=== PATIENT | female | born 1940 | race Caucasian/White ===

== ENCOUNTER → 2020-01-18 | Outpatient (CLI) | payer MEDICARE ==
[2020-01-18 14:24] LABS: INR 1.2 (<1.2); Partial Thromboplastin Time 28.9 sec (22.0-30.0); Prothrombin Time 11.8 sec (9.0-12.0)
[2020-01-18 14:30] LABS: Albumin 4.3 g/dL (3.5-5.0); Calcium 9.7 mg/dL (8.4-10.2); Potassium 4.2 mmol/L (3.5-5.1); Total Bilirubin 0.7 mg/dL (0.2-1.3); Total Protein 6.7 g/dL (6.3-8.2)
[2020-01-18 14:39] LABS: HCT 43.9 % (34.0-46.0); HGB 14.5 gm/dL (11.4-16.0); MCH 31.5 pg (25.0-35.0); MCHC 32.9 g/dL (31.0-37.0); MCV 95.8 fL (80.0-100.0); Mean Platelet Volume 8.1; Platelet Count 171 k/uL (150-450); RBC 4.58 m/uL (3.80-5.40); RDW 14.1 % (11.5-15.5); WBC 8.3 k/uL (3.8-10.6)
[2020-01-18 14:40] LABS: Appearance,Urine Clear (Clear); Bilirubin,Urine Negative (Negative); Blood,Urine Negative (Negative); Color,Urine Light Yellow; Glucose,Urine (UA) Negative (Negative); Ketones,Urine Negative (Negative); Leukocyte Esterase,Urine Small (Negative); Nitrite,Urine Negative (Negative); PH, Urine 5.5 (5.0-8.0); Protein,Urine Negative (Negative); RBC,Urine <1 /hpf (0-5); Specific Gravity,Urine 1.019 (1.001-1.035); Squamous Epithelial Cell,Urine <1 /hpf (0-4); Urobilinogen,Urine <2.0 mg/dL (<2.0); WBC,Urine 7 /hpf (0-5)
== END | disposition home or self-care (01) ==
LOC: LABPAT 13:36
PROVIDERS: ATTEND Orthopaedic Surgery
DX: Z01.812 Encounter for preprocedural laboratory examination (principal)
CPT/HCPCS: 80053; 81001; 85027; 85610; 85730; 87070

== ENCOUNTER 2020-01-29 12:56 | Day surgery (SDC) | payer MEDICARE ==
[2020-01-24 10:15] VITALS: BMI 36.8
[~2020-01-29 12:56] MED LIST: ACETAMINOPHEN TAB 500 MG TAB PO ONE; DEXAMETHASONE SOD PHOSPHATE 10 MG/ML 1 ML VIAL IV ONE; GABAPENTIN 300 MG CAP PO ONE; HYDROmorphone 0.5 MG/0.5 ML SYRINGE IVP PRN; MELOXICAM 7.5 MG TAB PO ONE; MIDAZOLAM 2 MG/2 ML VIAL IV PRN; ONDANSETRON 4 MG/2 ML VIAL IVP ONE; TRANEXAMIC ACID 1,000 MG in SODIUM CHLORIDE 0.9% 100 ML IVPB ONE
[2020-01-29] MEDS: LACTATED RINGERS 1,000 ML IV SCH ×6 (13:29→23:46)
[2020-01-29 13:37] LABS: Glucose,Whole Blood 96 mg/dL (75-99)
[2020-01-29] MEDS ORDERED: PROPOFOL 10 MG/ML 20 ML VIAL IV ONE (15:26)
[2020-01-29] MEDS ORDERED: LACTATED RINGERS 1,000 ML BAG IV ONE (15:26)
[2020-01-29] MEDS ORDERED: SODIUM CHLORIDE 0.9% 100 ML BAG ONE (15:26)
[2020-01-29] MEDS ORDERED: HEPARIN SODIUM,PORCINE 10,000 UNIT/ML 1 ML VIAL ONE (15:26)
[2020-01-29] MEDS ORDERED: TRANEXAMIC ACID 1,000 MG/10 ML VIAL ONE (15:26)
[2020-01-29] MEDS ORDERED: ePHEDrine SULFATE/0.9% NACL/PF 50 MG/5 ML SYRINGE IV ONE (15:26)
[2020-01-29] MEDS ORDERED: MIDAZOLAM 2 MG/2 ML VIAL ONE (15:26)
[2020-01-29] MEDS ORDERED: fentaNYL (PF) 50 MCG/ML 2 ML AMP ONE (15:26)
[2020-01-29] MEDS: ROPIVACAINE 246.25 MG, EPINEPHrine 0.5 MG, KETOROLAC 30 MG, cloNIDine HCL/PF 80 MCG, WA... MISCELLANE ONE ×10 (16:05→16:45)
[2020-01-29] MEDS ORDERED: ceFAZolin 3,000 MG in SODIUM CHLORIDE 0.9% IRRIGATIO 3,000 ML IRRIGATION ONE (16:06)
--- NOTE | 2020-01-29 16:50 | P.OP ---
Date of Procedure: 01/29/20 Preoperative Diagnosis: Severe osteoarthritis right hip Postoperative Diagnosis: Severe osteoarthritis right hip Procedure(s) Performed: Right total hip arthroplasty with a direct anterior approach Implants: Huynh and nephew Polarstem size 6 standard Huynh & Nephew R3, 3 hole acetabular shell, 54 mm Huynh & Nephew reflection 6.5 mm cancellus screw, 20 mm 2 Huynh [employer] Nephew R3, XLPE 20 acetabular liner Huynh & Nephew Oxinium femoral head 36 m, +8 All components were press-fit. The articulation is Oxinium on polyethylene. Anesthesia: spinal Surgeon: Clem Cantrell Steam Hoist Operator #1: Daina Roberts Estimated Blood Loss (ml): 200 (70 mL returned with Cell Saver) Pathology: other (Femoral head) Condition: stable Disposition: PACU Indications for Procedure: After failure of conservative treatment we discussed the surgical and nonsurgical treatment options at length. Patient wishes to proceed with a total hip arthroplasty with a direct anterior approach. Complications specific to this procedure were discussed at length, including but not limited to infection, leg length discrepancy, dislocation, and nerve injury. Patient is aware of all these complications and informed consent was obtained Operative Findings: The operative findings are consistent with severe osteoarthritis of the right hip Description of Procedure: Patient was seen and evaluated in the preoperative area, consent was reviewed, and the surgical site was marked with a skin marker. Patient was then brought to the operating room and given prophylactic antibiotics intravenously. 1 g of Tranexamic acid was also given. A spinal anesthetic was administered by the anesthesia department. The patient was then placed on the Van Lear table with the bony prominences well-padded. The hip area was then prepped and draped in usual sterile fashion. A universal timeout was then performed, which confirmed the patient's name, surgical site, ALLERGIES, and procedure being performed. Next the incision site was located at 1 cm distal and 1 cm lateral to the anterior superior iliac spine. The skin and subcutaneous tissues were sharply incised. Incision was carefully dissected down to the fascia overlying the tensor fascia castillo muscle. This fascia was then incised in line with the incision. Next, using blunt finger dissection, the tensor fascia castillo muscle was dissected off its investing fascia. The muscle was then carefully retracted laterally with a cobra retractor over the lateral neck of the femur. Next, the circumflex vessels were identified and cauterized using the AquaMantis device. The anterior hip capsule was then exposed. The capsule was then opened and an inverted T fashion. Cobra retractors were then placed intracapsularly. The proximal femur was then visu alized. The femoral neck was then osteotomized appropriate level above the lesser trochanter. Small amount of traction was placed with the Van Lear table. A small wedge of bone was then removed from the remaining femoral head. Next, using a corkscrew femoral head was easily removed from the acetabulum. On gross visual inspection, the femoral head had complete loss of articular cartilage in multip le periarticular osteophytes. Attention was then turned to the acetabulum. the acetabulum was exposed and any remaining labrum was excised. Sequential reaming of the acetabulum was performed using fluoroscopic guidance. When the appropriate size was reached, a trial was then placed. The position and fit of the trial was checked with fluoroscopy. The trial was then removed. Then, using fluoroscopic guidance, the final implant was impacted at 20 of anteversion and 40 of abduction, and fully seated in the acetabulum. 2 screws were then placed in the acetabulum. Again fluoroscopy was used to check position of the screws. Next, the liner was then impacted, with a 20 elevated liner located in the anterior superior quadrant. Component locking was confirmed. Attention was then directed to the femur. With the aid of the Van Lear table, the femur was externally rotated to approximately 130, extended, and abducted under the opposite leg. A side hook was then placed under the proximal femur, and the side hook elevator was used to elevate the proximal femur. Retractors were then placed. A capsular release was performed, as well as a release of the conjoined tendon, which afforded excellent visualization of the proximal femur. Next, a box osteotome was used to lateralize the proximal femur. A hand worker was then used to locate the femoral canal. Sequential broaching was then performed with appropriate size which afforded excellent fixation in the proximal femur. A trial was then placed with appropriate head and neck, and the hip was gently reduced with the aid of the Van Lear table. Fluoroscopy was then used to check position of the components, as well as to ensure equal leg lengths. The hip was then gently dislocated and the trials were then removed. Final implants were then impacted and the hip was again reduced. Final fluoroscopic x-rays confirmed that the components were in anatomic position, as well as equal leg lengths. The hip was also taken through range of motion, and found to be stable. The hip was then copiously irrigated with antibiotic solution with pulsatile lavage. The hip was then irrigated with Irrisept solution. The soft tissues were then injected with a ropivacaine solution, which consisted of 246.25 mg of ropivacaine, 0.5 mg of epinephrine, 30 mg of Toradol, 80 g of clonidine, and 48.45 mL of sterile water, for a total of 100 mL of fluid injected. A second dose of 1 g of Tranexamic acid was also given. the fascia was then closed with 2-0 strata fix suture. The subcutaneous tissue was closed with 3-0 Vicryl. The subcuticular tissue was closed with 3-0 strata fix suture. The skin was then closed with Dermabond glue and a sterile silver dressing. The patient was then transferred to the recovery room in stable condition. The pet care assistant EARL Olea was required due to the complexity of surgery, and the need for skilled surgical training specialist for positioning, draping, exposure, retraction, and closure of the wound.
--- NOTE | 2020-01-29 17:15 | FL ---
EXAMINATION TYPE: FL guidance operating room, XR Hip Limited RT DATE OF EXAM: 01/29/2020 CLINICAL HISTORY: Right hip pain and osteoarthritis. TECHNIQUE: Fluoroscopy. Limited intraoperative views right hip. COMPARISON: None. FINDINGS: Fluoroscopic guidance was provided during hip replacement procedure performed by Dr. Jeremiah cuba. A total of 55 seconds of fluoroscopic time was utilized during the procedure and 3 spot images was acquired. Intraoperative image acquired show metallic hardware that is in satisfactory in position on frontal p rojection. IMPRESSION: As Above.
[2020-01-29] MEDS ORDERED: LACTATED RINGERS 1,000 ML IV ONE (17:16)
[2020-01-29] MEDS ORDERED: TEMAZEPAM 15 MG CAP PO PRN (17:27)
[2020-01-29] MEDS ORDERED: HYDROmorphone 0.5 MG/0.5 ML SYRINGE IVP PRN ×3 (17:27)
[2020-01-29] MEDS ORDERED: MAGNESIUM HYDROXIDE 2,400 MG/10 ML CUP PO PRN (17:27)
[2020-01-29] MEDS ORDERED: NALOXONE 0.4 MG/ML 1 ML VIAL IV PRN (17:27)
[2020-01-29] MEDS ORDERED: HYDROcodone/APAP 5-325MG 1 EACH TAB PO PRN ×2 (17:27)
[2020-01-29 17:33] LABS: Glucose,Whole Blood 117 mg/dL (75-99)
--- NOTE | 2020-01-29 18:04 | XR ---
EXAMINATION TYPE: XR Hip Limited RT DATE OF EXAM: 01/29/2020 CLINICAL HISTORY: Right hip pain and osteoarthritis. TECHNIQUE: Single AP portable view of right hip is obtained immediately postoperatively. COMPARISON: None. FINDINGS: Metallic hardware from prior hip arthroplasty is seen and appears satisfactory in alignment and position. There is evidence of recent surgery with mild subcutaneous edema noted. IMPRESSION: Metallic hardware from right hip arthroplasty is satisfactory in position.
[2020-01-29 20:18] VITALS: RESP 18
[2020-01-29] MEDS ORDERED: SENNOSIDES-DOCUSATE SODIUM 1 EACH TAB PO SCH (21:00)
[2020-01-29] MEDS ORDERED: ATORVASTATIN 10 MG TAB PO SCH (21:30)
[2020-01-29 21:44] LABS: Glucose,Whole Blood 204 mg/dL (75-99)
[2020-01-30 06:54] LABS: Glucose,Whole Blood 118 mg/dL (75-99)
[2020-01-30 07:55] VITALS: BP 116/80; PULSE 70; TEMP 98.3
[2020-01-30] MEDS ORDERED: LOSARTAN 50 MG TAB PO SCH (09:00)
[2020-01-30] MEDS ORDERED: LINAGLIPTIN 5 MG TABLET PO SCH (09:00)
[2020-01-30] MEDS ORDERED: CALCIUM CARB-VIT D 500MG-200UN 1 EACH TAB PO SCH (09:00)
[2020-01-30] MEDS ORDERED: EZETIMIBE 10 MG TAB PO SCH (09:00)
[2020-01-30] MEDS ORDERED: NON FORMULARY DRUG (Turmeric Root Extract [Turmeric] 500 MG) PO SCH (09:00)
[2020-01-30] MEDS ORDERED: CHOLECALCIFEROL 1,000 UNIT TAB PO SCH (09:00)
[2020-01-30] MEDS ORDERED: RIVAROXABAN 20 MG TAB PO SCH (09:00)
[2020-01-30] MEDS ORDERED: CRANBERRY VIT C PO SCH (09:00)
[2020-01-30] MEDS ORDERED: amLODIPine 5 MG TAB PO SCH (09:00)
[2020-01-30] MEDS ORDERED: MELOXICAM 7.5 MG TAB PO SCH (09:00)
[2020-01-30] MEDS ORDERED: MEGA RED PO SCH (09:00)
[2020-01-30 09:20] LABS: Basophils % (A) 0 %; Eosinophils % (A) 0 %; HGB 12.7 gm/dL (11.4-16.0); Lymphocytes # (A) 1.3 k/uL (1.0-4.8); Lymphocytes % (A) 11 %; MCH 31.3 pg (25.0-35.0); MCHC 32.6 g/dL (31.0-37.0); Mean Platelet Volume 8.6; Monocytes # (A) 0.4 k/uL (0-1.0); Monocytes % (A) 4 %; Neutrophils # (A) 9.3 k/uL (1.3-7.7); Neutrophils % (A) 84 %; Platelet Count 186 k/uL (150-450); RBC 4.06 m/uL (3.80-5.40); RDW 14.3 % (11.5-15.5)
--- NOTE | 2020-01-30 11:01 | P.DS ---
Providers Expected date of discharge: 01/30/20 Attending physician: Clem Cantrell Consults: 01/29/20 17:27 Consult Physician Routine Consulting Provider: Alonso Musa Consult Reason/Comments: Medical management Do you want consulting provider notified?: Yes 01/29/20 20:47 Consult Physician Routine Consulting Provider: Maximino Martinez Consult Reason/Comments: medical managment Do you want consulting provider notified?: Yes Primary care physician: Alonso Musa - Discharge Diagnosis(es) (1) Osteoarthritis of right hip Current Visit: Yes Status: Acute (2) S/P total hip arthroplasty Current Visit: Yes Status: Acute Hospital Course: This is a 79-year-old female with known history of degenerative arthritis of the right hip. The patient presents for evaluation. After discussion and consideration patient elects to proceed with total hip arthroplasty. The patient is seen preoperatively by her primary care physician and cleared for surgery. Patient is admitted to [facility] on 01/29/2020 for total hip arthroplasty, anterior approach. The procedures performed without complication or sequelae. The patient is doing well postoperatively. Labs and vital signs are stable on day of discharge. On day of discharge patient's hip incision is healing well. There is minimal erythema. There is no drainage noted at this time. There is minimal soft tissue swelling to the hip and thigh. Patient has full foot and ankle motion without difficulty or pain. Neurovascular status to the right lower extremity is intact. Patient is discharged to home in good condition. Please see med rec for accurate list of home medications. Plan - Discharge Summary Discharge Rx Participant: No New Discharge Prescriptions: New HYDROcodone/APAP 5-325MG [Vining 5-325] 1 - 2 each PO Q4-6H PRN #50 tab PRN Reason: Pain Sennosides-Docusate Sodium [Senokot-S] 1 tab PO BID #60 tablet No Action metFORMIN HCL [Glucophage] 500 mg PO W/SUPPER Cholecalciferol [Vitamin D3 (25 Mcg = 1000 Iu)] 2,000 unit PO DAILY amLODIPine [Norvasc] 5 mg PO DAILY Rivaroxaban [Xarelto] 20 mg PO W/SUPPER Simvastatin [Zocor] 10 mg PO HS Losartan Potassium [Cozaar] 100 mg PO DAILY Linagliptin [Tradjenta] 5 mg PO DAILY traMADol HCL [Ultram] 50 mg PO BID Ezetimibe [Zetia] 10 mg PO DAILY Christophe Red 500 mg PO DAILY Calcium Carb/Vitamin D3/Vit K1 [Citracal Soft Chew] 2 each PO BID Turmeric Root Extract [Turmeric] 500 mg PO DAILY Cranberry Vit C 1 tab PO DAILY Atenolol [Tenormin] 50 mg PO HS Discharge Medication List Atenolol [Tenormin] 50 mg PO HS 01/24/20 [History] Calcium Carb/Vitamin D3/Vit K1 [Citracal Soft Chew] 2 each PO BID 01/24/20 [History] Cholecalciferol [Vitamin D3 (25 Mcg = 1000 Iu)] 2,000 unit PO DAILY 01/24/20 [History] Cranberry Vit C 1 tab PO DAILY 01/24/20 [History] Ezetimibe [Zetia] 10 mg PO DAILY 01/24/20 [History] Linagliptin [Tradjenta] 5 mg PO DAILY 01/24/20 [History] Losartan Potassium [Cozaar] 100 mg PO DAILY 01/24/20 [History] Christophe Red 500 mg PO DAILY 01/24/20 [History] Rivaroxaban [Xarelto] 20 mg PO W/SUPPER 01/24/20 [History] Simvastatin [Zocor] 10 mg PO HS 01/24/20 [History] Turmeric Root Extract [Turmeric] 500 mg PO DAILY 01/24/20 [History] amLODIPine [Norvasc] 5 mg PO DAILY 01/24/20 [History] metFORMIN HCL [Glucophage] 500 mg PO W/SUPPER 01/24/20 [History] traMADol HCL [Ultram] 50 mg PO BID 01/24/20 [History] HYDROcodone/APAP 5-325MG [Vining 5-325] 1 - 2 each PO Q4-6H PRN #50 tab 01/29/20 [Rx] Sennosides-Docusate Sodium [Senokot-S] 1 tab PO BID #60 tablet 01/29/20 [Rx] Follow up Appointment(s)/Referral(s): Alonso Musa MD [Primary Care Provider] - 1 Week Clem Cantrell DO [Doctor of Osteopathic Medicine] - 02/14/20 1:25 pm [facility] Visiting Nurse, [NON-STAFF] - As Needed Activity/Diet/Wound Care/Special Instructions: May bear wt as tolerated w walker. May shower 48h post op. Keep Optifoam in place 10 days. Discharge Disposition: HOME WITH HOME HEALTH SERVICES
[2020-01-30 11:24] LABS: Glucose,Whole Blood 136 mg/dL (75-99)
--- NOTE | 2020-01-30 12:16 | P.CONS ---
History of Present Illness - Reason for Consult Consult date: 01/30/20 Medical management Requesting physician: Clem Cantrell - Chief Complaint Right hip surgery - History of Present Illness Consultation: This is a very pleasant [address] Alonso thompson. Chronic stable medical conditions include atrial fibrillation, diabetes, hyperlipidemia, osteoarthritis, varicose veins, urinary incontinence. Patient chronically takes it out to for the A. fib. Patient back in 1998. Did have DVT. Postprocedure pains controlled. No nausea vomiting. Did tolerate some breakfast. Did work with physical therapy. No chest pain or shortness of breath. Review of systems: GEN.: None EYES: None HEENT: None NECK: None RESPIRATORY: None CARDIOVASCULAR: None GASTROINTESTINAL: None GENITOURINARY: Urinary incontinence MUSCULOSKELETAL: Joint pains LYMPHATICS: None HEMATOLOGICAL: None PSYCHIATRY: None NEUROLOGICAL: None Past medical history to include: Information, diabetes, DVT, hyperlipidemia, hypertension, osteoarthritis varicose veins, and urinary incontinence, gout, kidney stones Social history: Does not smoke or drink alcohol. . Does use a cane and a walker at home. Physical examination: VITAL SIGNS: 98.3, 70, 18, blood pressure 116/80, 96% on room air GENERAL: BMI 36.8, sitting up, comfortable. EYES: Pupils equal. Conjunctiva normal. HEENT: External appearance of nose and ears normal, oral cavity grossly normal. NECK: JVD not raised; masses not palpable. HEART: First and second heart sounds are normal; no edema. LUNGS: Respiratory rate normal; clear to auscultation. ABDOMEN: Soft, nontender, liver spleen not palpable, no masses palpable. PSYCH: Alert and oriented x3; mood and affect normal. MUSCULOSKELETAL: Dressing over the right hip, evidence of OA in the hands NEUROLOGICAL: Cranial nerves grossly intact; no facial asymmetry, power and sensation grossly intact. LYMPHATICS: No lymph nodes palpable in the axilla and neck INVESTIGATIONS, reviewed in the clinical context: White count 11, hemoglobin 12.7, platelets 186 Labs from 01/18/2020-white count 8.3, hemoglobin 14.5, creatinine 0.9 and potassium 4.2. Assessment: -Right total hip arthroplasty -Atrial fibrillation -Diabetes mellitus type 2 on oral hypoglycemic -Hyperlipidemia -Primary osteoarthritis -Chronic urinary incontinence -Obesity BMI 36.8 Plan: Home medications to continue. Patient's Xarelto be resumed when okay with orthopedics. That'll also cover for DVT prophylaxis. Care was discussed with the patient. Questions were answered. Patient should follow up with PCP upon discharge. Thank you Dr. Cantrell. Past Medical History Past Medical History: Atrial Fibrillation, Diabetes Mellitus, Deep Vein Thrombosis (DVT), Hyperlipidemia, Hypertension, Osteoarthritis (OA), Vascular Disorder Additional Past Medical History / Comment(s): constipation,varicose veins, urinary leakage, hx gout, hx kidney stones History of Any Multi-Drug Resistant Organisms: None Reported Past Surgical History: Tonsillectomy Additional Past Surgical History / Comment(s): kidney stones removed, milton cataracts, Past Anesthesia/Blood Transfusion Reactions: No Reported Reaction Past Psychological History: No Psychological Hx Reported Smoking Status: Never smoker Past Alcohol Use History: None Reported Past Drug Use History: None Reported - Past Family History Mother Family Medical History: No Reported History Medications and Allergies Home Medications Medication Instructions Recorded Confirmed Type Atenolol [Tenormin] 50 mg PO HS 01/24/20 01/29/20 History Calcium Carb/Vitamin D3/Vit K1 2 each PO BID 01/24/20 01/29/20 History [Citracal Soft Chew] Cholecalciferol [Vitamin D3 (25 2,000 unit PO DAILY 01/24/20 01/29/20 History Mcg = 1000 Iu)] Cranberry Vit C 1 tab PO DAILY 01/24/20 01/29/20 History Ezetimibe [Zetia] 10 mg PO DAILY 01/24/20 01/29/20 History Linagliptin [Tradjenta] 5 mg PO DAILY 01/24/20 01/29/20 History Losartan Potassium [Cozaar] 100 mg PO DAILY 01/24/20 01/29/20 History Christophe Red 500 mg PO DAILY 01/24/20 01/29/20 History Rivaroxaban [Xarelto] 20 mg PO W/SUPPER 01/24/20 01/29/20 History Simvastatin [Zocor] 10 mg PO HS 01/24/20 01/29/20 History Turmeric Root Extract [Turmeric] 500 mg PO DAILY 01/24/20 01/29/20 History amLODIPine [Norvasc] 5 mg PO DAILY 01/24/20 01/29/20 History metFORMIN HCL [Glucophage] 500 mg PO W/SUPPER 01/24/20 01/29/20 History traMADol HCL [Ultram] 50 mg PO BID 01/24/20 01/29/20 History HYDROcodone/APAP 5-325MG [Leland 1 - 2 each PO Q4-6H PRN #50 tab 01/29/20 Rx 5-325] Sennosides-Docusate Sodium 1 tab PO BID #60 tablet 01/29/20 Rx [Senokot-S] Allergies Allergy/AdvReac Type Severity Reaction Status Date / Time No Known Allergies Allergy Verified 01/29/20 13:24 Physical Exam Vitals: Vital Signs Temp Pulse Pulse Resp BP BP Pulse Ox 01/30/20 07:00 98.3 F 70 18 116/80 96 01/30/20 03:42 64 18 01/30/20 02:00 97.7 F 64 101/58 96 01/30/20 00:00 18 01/29/20 20:56 90 113/74 96 01/29/20 20:41 78 125/76 94 L 01/29/20 20:26 76 133/80 96 01/29/20 20:17 97.5 F L 89 18 128/75 96 01/29/20 20:11 75 117/69 93 L 01/29/20 20:00 81 16 128/61 96 01/29/20 19:56 85 117/71 95 01/29/20 19:42 91 118/62 92 L 01/29/20 19:26 70 119/54 96 01/29/20 19:20 83 16 129/60 97 01/29/20 19:12 97.5 F L 110 H 128/75 92 L 01/29/20 18:50 87 16 161/70 97 01/29/20 18:35 81 16 163/76 98 01/29/20 18:20 81 16 150/76 98 01/29/20 18:05 79 16 144/61 98 01/29/20 17:50 80 16 127/64 98 01/29/20 17:35 81 16 112/67 98 01/29/20 17:20 96.8 F L 80 16 110/60 100 01/29/20 13:31 97.9 F 60 16 176/77 99 Intake and Output 01/29/20 01/30/20 01/30/20 22:59 06:59 14:59 Intake Total 1751 400 Output Total 200 Balance 1551 400 Intake: IV 1151 Intake, IV Titration 600 400 Amount Lactated Ringers 1,000 ml 600 @ 100 mls/hr IV .Q10H HERIBERTO Rx#:[id number] ceFAZolin 2 gm In Sodium 400 Chloride 0.9% 50 ml @ 100 mls/hr IVPB Q8HR HERIBERTO Rx# :[id number] Output: Estimated Blood Loss 200 Other: Voiding Method Toilet # Voids 2 Weight 106.594 kg Results CBC & Chem 7: 01/30/20 08:08 Labs: Abnormal Lab Results - Last 24 Hours (Table) 01/29/20 01/29/20 01/30/20 Range/Units 17:31 21:42 06:53 WBC (3.8-10.6) k/uL Neutrophils # (1.3-7.7) k/uL POC Glucose (mg/dL) 117 H 204 H 118 H (75-99) mg/dL 01/30/20 Range/Units 08:08 WBC 11.0 H (3.8-10.6) k/uL Neutrophils # 9.3 H (1.3-7.7) k/uL POC Glucose (mg/dL) (75-99) mg/dL
[2020-01-30] MEDS ORDERED: metFORMIN 500 MG TAB PO SCH (17:30)
[2020-01-30] MEDS ORDERED: ATENOLOL 50 MG TAB PO SCH (21:00)
== END 2020-01-30 14:00 | disposition home health service (06) ==
LOC: OR 12:56 → EDSTATUS 14:55 → 4SSUR 17:20 → OR 01-30 14:00
PROVIDERS: ATTEND Orthopaedic Surgery
DX: M16.11 Unilateral primary osteoarthritis, right hip (principal); E11.9 Type 2 diabetes mellitus without complications; I10 Essential (primary) hypertension; I48.21 Permanent atrial fibrillation; E78.2 Mixed hyperlipidemia; Z87.442 Personal history of urinary calculi; Z98.42 Cataract extraction status, left eye; Z98.41 Cataract extraction status, right eye; Z83.3 Family history of diabetes mellitus; Z98.890 Other specified postprocedural states; E66.9 Obesity, unspecified; Z68.36 Body mass index [BMI] 36.0-36.9, adult; M10.9 Gout, unspecified; Z86.718 Personal history of other venous thrombosis and embolism; Z79.01 Long term (current) use of anticoagulants; Z79.84 Long term (current) use of oral hypoglycemic drugs; Z79.899 Other long term (current) drug therapy
CPT/HCPCS: 97161; 97535; 97165; 86891; 86900; 86901; 85025; 86850; 73501; 27130; P9022; C1776; J0171; J1100; J0690 ×3; J2405; J1885; J2795; J0735; 88300

== ENCOUNTER → 2021-11-17 | Outpatient (CLI) | payer MEDICARE ==
[2021-11-17 17:38] LABS: Basophils % (A) 1 %; Eosinophils # (A) 0.3 k/uL (0-0.7); Eosinophils % (A) 3 %; HCT 42.5 % (34.0-46.0); HGB 13.4 gm/dL (11.4-16.0); Hypochromasia Slight; Lymphocytes # (A) 2.2 k/uL (1.0-4.8); Lymphocytes % (A) 24 %; MCH 31.5 pg (25.0-35.0); MCHC 31.5 g/dL (31.0-37.0); MCV 99.9 fL (80.0-100.0); Mean Platelet Volume 7.8; Monocytes # (A) 0.6 k/uL (0-1.0); Monocytes % (A) 6 %; Neutrophils % (A) 65 %; Platelet Count 220 k/uL (150-450); RBC 4.26 m/uL (3.80-5.40); RDW 13.5 % (11.5-15.5); WBC 9.2 k/uL (3.8-10.6)
[2021-11-17 17:51] LABS: Albumin 3.9 g/dL (3.5-5.0); Calcium 9.3 mg/dL (8.4-10.2); Total Bilirubin 0.6 mg/dL (0.2-1.3); Total Protein 7.1 g/dL (6.3-8.2)
--- NOTE | 2021-11-18 08:22 | CT ---
EXAMINATION TYPE: CT ChestAbdPelvis wo/w con DATE OF EXAM: 11/17/2021 COMPARISON: None HISTORY: adrenal mass CT DLP: 3630.1 mGycm CONTRAST: CT scan of the chest, abdomen and pelvis is performed with Oral Contrast and without and with IV Cont rast, patient injected with 80cc mL of Isovue 300. CT Chest: LUNGS: The lungs are clear and free of infiltrate or atelectasis. Scattered parenchymal scarring is noted. No pulmonary nodule or mass is detected. No pleural effusion or CT evidence of interstitial l alcides disease. MEDIASTINUM: Thoracic aorta is of normal caliber. The heart is enlarged. No evidence for mediastin al mass or adenopathy. HILAR STRUCTURES: No evidence for mass. No hilar adenopathy is appreciated. OTHER: No significant abnormality. CONTRAST CT ABDOMEN AND PELVIS FINDINGS: LIVER/GB: Gallbladder sludge identified. No space occupying hepatic lesion. Biliary tree is of normal caliber. PANCREAS: No inflammation. No distinct mass. SPLEEN: No splenic enlargement. No lesion seen. ADRENALS: There is a right adrenal mass which measures 5.5 x 6.5 x 6.4 cm. On the nonenhanced portion of the study Hounsfield unit measurement is approximately 16 Hounsfield units while following contra st approximately 15 Hounsfield units. Another couple scattered peripheral calcifications. No evidence for left adrenal mass. KIDNEYS/BLADDER: No hydronephrosis. 4 mm nonobstructing calculus mid pole left kidney. Left renal cy stic lesion measures approximately 1 cm. No solid renal masses identified. BOWEL: Normal appendix. Normal bowel caliber. No inflammation. GENITAL ORGANS: No gross abnormality. LYMPH NODES: No greater than 1cm abdominal or pelvic lymph nodes are appreciated. AORTA: No significant abnormality. OSSEOUS STRUCTURES: Right hip prosthesis. Degenerative changes lumbar spine. OTHER: No significant additional abnormality is seen. IMPRESSION: 1. Nonspecific right adrenal mass. Consider further evaluation with MRI.
== END | disposition home or self-care (01) ==
LOC: RADCTMAIN 16:56
DX: D44.11 Neoplasm of uncertain behavior of right adrenal gland (principal)
CPT/HCPCS: 80053; 85025; 71270; 74178; 36415; Q9967

== ENCOUNTER → 2021-12-11 | Outpatient (CLI) | payer MEDICARE ==
--- NOTE | 2021-12-11 16:00 | US ---
EXAMINATION TYPE: US venous doppler duplex LE DATE OF EXAM: 12/11/2021 3:11 PM COMPARISON: NONE CLINICAL HISTORY: CHRONIC VENOUS HTN W ULCER AND INFLAMMATION OF R LOW EXTREM. non healing wound righ t lower leg. patient on blood thinner for A-FIB SIDE PERFORMED: Bilateral TECHNIQUE: The lower extremity deep venous system is examined utilizing real time linear array sonog harleen with graded compression, doppler sonography and color-flow sonography. VESSELS IMAGED: Common Femoral Vein Deep Femoral Vein Greater Saphenous Vein * Femoral Vein Popliteal Vein Small Saphenous Vein * Proximal Calf Veins (* superficial vessels) technical limitations due to patient's body habitus Right Leg: appears positive for DVT right femoral vein extending into popliteal vein. thready flow w ith partial compression. complex fluid collection right popliteal fossa = 5.6 x 1.8 x 2.3cm, Guo's cyst Left Leg: appears positive for DVT right femoral vein lower extending into popliteal vein. thready f low with partial compression. IMPRESSION: 1. Deep venous thrombosis present within the bilateral lower extremities 2. Popliteal cysts right posterior popliteal fossa
== END | disposition home or self-care (01) ==
LOC: RADUSWWP 14:18
PROVIDERS: ATTEND Thoracic Surgery (Cardiothoracic Vascular Surgery)
DX: I82.413 Acute embolism and thrombosis of femoral vein, bilateral (principal); I82.433 Acute embolism and thrombosis of popliteal vein, bilateral; M71.21 Synovial cyst of popliteal space [Baker], right knee; E11.622 Type 2 diabetes mellitus with other skin ulcer; L97.812 Non-pressure chronic ulcer of other part of right lower leg with fat layer exposed
CPT/HCPCS: 93922; 93970

== ENCOUNTER → 2022-08-07 | Outpatient (CLI) | payer MEDICARE ==
[2022-08-07 16:13] LABS: ALT 22 U/L (8-44); AST 27 U/L (13-35); Chol/HDL Ratio 2.09 Ratio; LDL Cholesterol,Calculated 52.1 mg/dL (0.0-131.0); VLDL Calculation 11.14 mg/dL (5.00-40.00)
== END | disposition home or self-care (01) ==
LOC: LABWHC1 08:59
PROVIDERS: ATTEND Internal Medicine Cardiovascular Disease
DX: E78.2 Mixed hyperlipidemia (principal)
CPT/HCPCS: 36415; 80061; 84450; 84460